=== PATIENT | female | born 1975 | race African-American/Black ===

== ENCOUNTER 2019-10-13 06:06 | Emergency (ER) | payer OTHER ==
[2019-10-13 06:21] VITALS: TEMP 98.1; BMI 11.2
--- NOTE | 2019-10-13 08:00 | PDOC ---
Attending Attestation - Resident Resident Name: Kobe Nicolas - ED Attending Attestation I have performed the following: I have examined & evaluated the patient, The case was reviewed & discussed with the resident, I agree w/resident's findings & plan, Exceptions are as noted - Medical Decision Making 10/13/19 10:06 Well-appearing no apparent distress with left facial pain/spasm no evidence of infection on physical exam no evidence of spasm on physical exam no TMJ pain, no temporal pain, no other systemic symptoms no eye involvement ear involvement
--- NOTE | 2019-10-13 08:08 | PDOC ---
History of Present Illness - General Chief Complaint: Head/Neck problem Stated Complaint: FACIAL SPASMS Time Seen by Provider: 10/13/19 07:16 History Source: Patient Exam Limitations: No Limitations - History of Present Illness Initial Comments: 10/13/19 21:30 43F PMH increased ICP on MRI, h/o recurrent transient visual loss, anxiety, MDD, HTN, HLD c/o sharp lancinating pain of the left maxilla and mandible that started last PM after belly dancing. Pt has never had this before but was concerned that it was related to her tooth extraction last year. Denies visual or hearing changes. Denies recent cough, sore throat, runny nose, congestion, f/c. Denies numbness,tingling,weakness. New to this area and not yet connected w/ neurology. PMD @ [facility]. Allergy to gabapentin. Past History - Past Medical History Allergies/Adverse Reactions: Allergies Allergy/AdvReac Type Severity Reaction Status Date / Time IV CONTRAST Allergy Uncoded 10/13/19 06:18 COPD: No Psychiatric Problems: Yes (ANXIETY DEPRESSION) Other medical history: INTRACRANIAL PRESSURE WITH TRANSIENT VISION LOSS. - Psycho Social/Smoking Cessation Hx Smoking History: Never smoked Review of Systems - Review of Systems Able to Perform ROS?: Yes Comments:: 10/13/19 21:30 CONSTITUTIONAL: Denies F / C HEENT: endorses maxillary and mandibular pain. Denies changes in vision / hearing, diplopia, blurry vision, sore throat, rhinorrhea RESP: Denies SOB CARD: Denies chest pain GI: Denies N / V / D, abdominal pain, bloody stool, inability to tolerate PO : Denies dysuria SKIN: Denies rashes NEURO: Denies numbness, tingling, weakness MSK: Denies back pain *Physical Exam - Vital Signs Last Vital Signs Temp Pulse Resp BP Pulse Ox 98.1 F 79 18 144/95 97 10/13/19 06:10 10/13/19 06:10 10/13/19 06:10 10/13/19 06:10 10/13/19 06:10 - Physical Exam 10/13/19 21:30 GEN: Well appearing, NAD, comfortable. AAOx3. HEENT: NC/AT, CN II-XII intact, EOMI, PERRL. No facial asymmetry. No sinus TTP; slightly reproducible tenderness w/ percussion of left TMJ. No TTP of the left maxilla / mandible. Moist mucous membranes w/o erythema, swelling. Normal voice. Supple neck w/ FROM. CV: S1/S2, RRR, no m/r/g LUNG: CTAB, no wheezes, crackles, rales, rhonchi. GI: Soft, ndnt, +BS, no guarding, no rebound MSK: No obvious deformities of all extremities. SKIN: Warm, dry, no rashes appreciated. PSYCH: odd affect, normal mood NEURO: Moving all extremities well. 5/5 UE strength b/l. 5/5 LE strength b/l. Sensation symmetric and intact throughout. No ataxia FTN. Ambulates w/ normal gait. ED Treatment Course - LABORATORY CBC & Chemistry Diagram: 10/13/19 08:25 10/13/19 08:25 Medical Decision Making - Medical Decision Making 10/13/19 08:08 43F PMH increased ICP on MRI, h/o recurrent transient visual loss, anxiety, MDD, HTN, HLD c/o sharp lancinating left maxillary/mandibular pain x1 day. Neurologically intact - nonfocal exam. DDX - CN V neuralgia?, mass, infection, headache; unlikely GCA. - CBC, CMP 10/13/19 09:47 labs reviewed reassuring Discharge - Discharge Information Problems reviewed: Yes Clinical Impression/Diagnosis: Jaw pain Condition: Stable Disposition: HOME - Admission No - Follow up/Referral Referrals: Dontae Hand MD [Primary Care Provider] - - Patient Discharge Instructions Additional Instructions: Your exam and lab work were reassuring that an emergency is not occurring. We recommend follow up for your symptoms. Take NSAIDs (e.g. ibuprofen, motrin, advil, aleve) for pain; follow the dosing instructions on the label. Follow up with Dentistry in the next 7 days. Follow up with Neurology in the next 7 days. You may use your previous referral. Follow up with your Primary Care Doctor in the next 7 days. Immediately return to the nearest Emergency Department if you experience: - fevers - changes to your vision or hearing - slurred speech - numbness, tingling, or focal weakness of any limb - Post Discharge Activity Work/Back to School Note: Back to Work
[2019-10-13 08:47] LABS: BASO % 0.8 % (0-2.0); EOS % 1.7 % (0-4.5); HEMATOCRIT 32.8 % (32.4-45.2); HEMOGLOBIN 10.6 GM/dL (10.7-15.3); LYMPH % 35.2 % (8-40); MCH 22.1 pg (25.7-33.7); MCHC 32.2 g/dl (32.0-36.0); MEAN CELL VOLUME 68.7 fl (80-96); MEAN PLT VOLUME 8.7 fl (7.5-11.1); MONO % 6.5 % (3.8-10.2); NEUT % 55.8 % (42.8-82.8); PLATELET COUNT 338 K/MM3 (134-434); RBC 4.77 M/mm3 (3.60-5.2); RDW 14.4 % (11.6-15.6); WHITE BLOOD COUNT 7.3 K/mm3 (4.0-10.0)
[2019-10-13 09:17] LABS: ALBUMIN 3.4 g/dl (3.4-5.0); BILIRUBIN,TOTAL 0.5 mg/dL (0.2-1); CALCIUM 8.9 mg/dL (8.5-10.1); CREATININE 0.8 mg/dL (0.55-1.3); POTASSIUM 4.1 mmol/L (3.5-5.1); TOT PROT 6.7 g/dl (6.4-8.2)
--- NOTE | 2019-10-13 10:46 | PDOC ---
Documentation entered by Neil Becerra SCRIBE, acting as scribe for Juve Stone MD. Juve Stone MD: This documentation has been prepared by the Mariam owen Nirvannie, SCRIBE, under my direction and personally reviewed by me in its entirety. I confirm that the documentation accurately reflects all work, treatment, procedures, and medical decision making performed by me. Attending Attestation - Resident Resident Name: NicolasKobe - ED Attending Attestation I have performed the following: I have examined & evaluated the patient, The case was reviewed & discussed with the resident, I agree w/resident's findings & plan, Exceptions are as noted - HPI HPI: 10/13/19 10:16 CC: Left facial pain HPI: The patient is a 43 year old female, with a significant past medical history of increased ICP on MRI, recurrent transient visual loss, anxiety, major depression disorder, hypertension, hyperlipidemia, who presents to the emergency department with sharp, pulsating pain to the left cheek and mouth. Patient notes the symptoms have been ongoing for a year and this current episode onset last night after belly dancing. Patient has been evaluated by dentistry x2 and had a tooth extracted as well as advised she may have sinusitis. Patient recently moved from [place] and is still establishing neurological care. She denies recent nausea, vomit, diarrhea or constipation. She denies recent dysuria, frequency, urgency or hematuria. She denies recent chest pain or shortness of breath. Allergies: Gabapentin, IV contrast - Physicial Exam PE: Vitals: Triage Vital signs reviewed General Appearance: No acute distress, well nourished well developed, Head: Atraumatic, Eyes: Pupils equal reactive round, extraocular movement intact Dental: No tooth tenderness no dental abscesses Throat: Posterior oropharynx without erythema, mucous membranes moist, Neck: Supple; no Nucal rigidity Cardiac: Regular rate and rhythym, no murmurs, no rubs, no gallops, Lungs: Clear to auscultation bilateral, good air movement bilaterally, Abdomen: Soft, non distended, normal bowel sounds, non tender to palpation Extremities: Full range of motion to all extremities, no cyanosis, clubbing, or edema Skin: Warm and dry, no rashes or lesions, no rash, no petechiae Psych: Normal mood, normal affect - Medical Decision Making 10/13/19 10:24 43 year old female, with a significant past medical history of increased ICP on MRI, recurrent transient visual loss, anxiety, major depression disorder, hypertension, hyperlipidemia, who presents to the emergency department with sharp, pulsating pain to the left cheek and mouth. Plan is: CBC CMP 10/13/19 12:06 Well-appearing no apparent distress with left facial pain/spasm no evidence of infection on physical exam no evidence of spasm on physical exam no TMJ pain, no temporal pain, no other systemic symptoms no eye involvement ear involvement History examination consistent with tooth pain/nerve irritation will recommend short course of NSAIDs dental and neurology follow-up Findings, need for follow-up and strict return instructions cussed with patient.
[2019-10-13 11:01] VITALS: BP 121/76; PULSE 72
== END 2019-10-13 10:15 | disposition home or self-care (01) ==
LOC: JER 06:06
DX: R68.84 Jaw pain (principal); F41.8 Other specified anxiety disorders; I10 Essential (primary) hypertension; E78.5 Hyperlipidemia, unspecified; Z91.041 Radiographic dye allergy status; Z87.820 Personal history of traumatic brain injury
CPT/HCPCS: 36415; 80053; 85025; 99283-25